=== PATIENT | female | born 2000 | race Caucasian/White ===

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

== ENCOUNTER → 2022-10-06 | Outpatient (CLI) | payer BC | LOC: COL.LAB 13:31 | DX: K59.09 Other constipation (principal) ==

== ENCOUNTER → 2022-10-13 | Outpatient (CLI) | payer BC | LOC: COL.RAD 16:02 | DX: N94.6 Dysmenorrhea, unspecified (principal); R10.2 Pelvic and perineal pain ==